=== PATIENT | female | born 1950 | race Caucasian/White ===

== ENCOUNTER 2019-12-10 19:14 | Inpatient (IN) | payer MEDICARE, BC ==
[~2019-12-10] VITALS: Ht 175.3 cm; Wt 52.6 kg
--- NOTE | 2019-12-10 19:24 | NUR ---
at bedside for MSE
[2019-12-10] MEDS ORDERED: QUET200T PO (19:42)
[2019-12-10] MEDS ORDERED: LEVO75TA7 PO (19:42)
[2019-12-10] MEDS ORDERED: PROP20TA7 PO (19:42)
[2019-12-10] MEDS ORDERED: METF-440 PO (19:42)
[2019-12-10] MEDS ORDERED: SERT50TA PO (19:42)
--- NOTE | 2019-12-10 19:53 | NUR ---
EKG done at this time
--- NOTE | 2019-12-10 19:55 | NUR ---
X-ray tech in room at this time
--- NOTE | 2019-12-10 20:19 | NUR ---
Nikki from crisis team called, awaitng return call at this time
--- NOTE | 2019-12-10 20:34 | NUR ---
Assisted to restroom at this time, patient noted talking to self while alone in room
--- NOTE | 2019-12-10 22:07 | NUR ---
Report given at this time to MHU nurse, patient placed on Gravely Disabled hold
[2019-12-10] MEDS ORDERED: MAGNESIUM HYDROXIDE 30 ML LIQUID UDC PO PRN (22:45)
[2019-12-10] MEDS ORDERED: TEMAZEPAM 7.5 MG CAPSULE PO PRN (22:45)
[2019-12-10] MEDS ORDERED: MAG HYDROX/AL HYDROX/SIMETH 30 ML LIQUID UDC PO PRN (22:45)
[2019-12-10] MEDS ORDERED: LORAZEPAM 2 MG/1 ML VIAL IM ONE (22:45)
[2019-12-10] MEDS ORDERED: BLOOD SUGAR DIAGNOSTIC 1 EACH STRIP VI ONE (22:45)
[2019-12-10] MEDS ORDERED: LORAZEPAM 2 MG/1 ML VIAL ONE (22:46)
--- NOTE | 2019-12-10 22:54 | NUR ---
While patient was about to transfer to MHU, patient begun yelling that she wouldnt not go, and then begun hitting and kicking staff and throwing a nearby chair at security, Patient placed in 4 point restraints and given Ativan 2 mg IM per MD orders
[2019-12-10] MEDS ORDERED: ZIPRASIDONE MESYLATE 20 MG VIAL IM ONE ×2 (23:12→23:15)
--- NOTE | 2019-12-10 23:14 | NUR ---
Patient check for circulatory areas, patient continues to yell at this time, 4 point restraints remain intact at this time
--- NOTE | 2019-12-10 23:25 | NUR ---
Patient checked for bathroom needs, cap refill less than 3 seconds, all pulses present, skin to all extremities are WNL
--- NOTE | 2019-12-10 23:45 | NUR ---
Patient checked for bathroom needs, cap refill less than 3 seconds, all pulses present, skin to all extremities are WNL, patient continues to refuse to go to MHU
--- NOTE | 2019-12-11 | NUR ---
Restraints removed at this time, Pt. admitted to MHU , under care of Dr. Chappell Belongs List completed and all belongings sent with patient
[2019-12-11 00:15] VITALS: BP 101/61
--- NOTE | 2019-12-11 00:34 | NUR ---
At approx 0010, admitted 69 years old female to [facility] MHU on a 5150 hold for GD. Per hold, patient lives at home with her . She was taken by her to [facility] d/t increased depression, refusing to eat and unable to care for self. pt has long history of mental health issues. upon interview, she was noted rambling, pacing back and forth, unable to give any meaningful information. She stated, "I has having a conflicted power struggle with my ". She was mumbling to herself and constantly restless and moving her arms. per Kelvin, pt is not eating or drinking for over 24hrs. and not caring for herself. Just before the patient was transferred form ER to MHU, she became aggressive, yelling, screaming, throwing chairs at staff. she was placed on a 4 point restrains and given Geodone 5mg and then Ativan 2mg. Upon admission to MHU, face to face assessment was done and her advisement was given. patient noted A/O x 1. When asked what she was here for, she stated, "I am having a surgery". she is noted drowsy and unable to sign her admission papers. Patient was advised of her hold and given the "Patient rights for mental health" booklet. she was given PO fluids and was taken to the restroom. Skin assessment done, redness noted in forehead (possible psoriasis) and ecchymosis on both forearms. pictures were taken and placed in chart. Her hold will be up on at 2120. Pt is under the care of dr. Chappell. we will continue to monitor Q15 min checks.
[2019-12-11 07:30] VITALS: BP 106/58
[2019-12-11] MEDS ORDERED: INSULIN REGULAR, HUMAN 300 UNIT/3 ML VIAL SQ PRN ×2 (07:45→14:15)
[2019-12-11] MEDS ORDERED: DEXTROSE 50% 50 ML DISP.SYRIN IV PRN ×2 (07:45→14:15)
[2019-12-11] MEDS: PROPRANOLOL HCL 20 MG TABLET PO SCH ×2 (09:00→16:29)
[2019-12-11] MEDS: LEVOTHYROXINE SODIUM 75 MCG TABLET PO SCH (09:33)
[2019-12-11 10:35] LABS: POTASSIUM 4.1 mmol/L (3.5-5.1)
--- NOTE | 2019-12-11 11:12 | NUR ---
Patient is resting quietly and comfortably in her assigned room. Patient is cooperative, redirectable, and has appropriate interaction with staff. Patient is medication adherent, no adverse medication reaction noted. Patient dressed appropriately. She is guarded, withdrawn, and isolative to her assigned room. Patient Denies Suicidal and homicidal ideation, denies Auditory/visual hallucinations. Patient instructed to communicate needs to staff. Bed is in low and locked position. Able to tolerate food and fluids, and to ambulate independently.
[2019-12-11] MEDS: METFORMIN HCL 500 MG TABLET PO SCH (12:00)
[2019-12-11] MEDS: BLOOD SUGAR DIAGNOSTIC 1 EACH STRIP VI SCH ×3 (12:10→20:15)
--- NOTE | 2019-12-11 12:15 | NUR ---
BS 85. Patient is showing no signs of symptoms of hypoglycemia. she is able to tolerate food or fluids. patient provided with education regarding signs and symptoms of hypoglycemia and to inform nurse if these occur, able to verbalize understanding.
[2019-12-11 16:00] VITALS: BP 93/61
[2019-12-11] MEDS ORDERED: BLOOD SUGAR DIAGNOSTIC 1 EACH STRIP VI SCH (16:30)
--- NOTE | 2019-12-11 17:00 | NUR ---
BS 89. Patient has no signs or symptoms of hypoglycemia. She is able to tolerate food and fluids. Patient provided with education about signs and symptoms of hypoglycemia and to inform nurse if these occur, able to verbalize understanding.
[2019-12-11] MEDS: CEphaleXIN 500 MG CAPSULE PO SCH (17:34)
[2019-12-11 20:00] VITALS: BP 101/56
[2019-12-12] MEDS: ACETAMINOPHEN 325 MG TABLET PO PRN (04:49)
[2019-12-12] MEDS: LORAZEPAM 1 MG TABLET PO PRN (04:49)
--- NOTE | 2019-12-12 05:36 | NUR ---
Received patient at the beginning of the shift in bed with covers over her head. Patient stated that " There are bugs biting me all over my body". Also patient was responding to internal stimuli. This patient was able to tell loan underwriter where she was. During the night, patient walked out of room totally wet from urinating self and the bed. Shower was given but bizarre behavior was noted with some aggressive actions towards the SENIOR RISK ANALYST. Android Developer assisted patient back to bed and medicated patient for anxiety d/t patient seeming nervous and squirming around. Patient was compliant. Continuing to monitor for safety, aggressive behavior and medication compliance. No distress at this time.
[2019-12-12] MEDS: BLOOD SUGAR DIAGNOSTIC 1 EACH STRIP VI SCH ×2 (06:15→11:30)
[2019-12-12 07:30] VITALS: BP 101/66
[2019-12-12] MEDS: SERTRALINE HCL 50 MG TABLET PO SCH ×2 (08:20→09:00)
[2019-12-12] MEDS: METFORMIN HCL 500 MG TABLET PO SCH ×2 (08:20→09:00)
[2019-12-12] MEDS: CEphaleXIN 500 MG CAPSULE PO SCH ×3 (08:20→16:38)
[2019-12-12] MEDS: LITHIUM CARBONATE 300 MG CAPSULE PO SCH ×4 (08:20→16:37)
[2019-12-12] MEDS: LEVOTHYROXINE SODIUM 75 MCG TABLET PO SCH ×2 (08:20→09:00)
[2019-12-12] MEDS: PROPRANOLOL HCL 20 MG TABLET PO SCH ×2 (09:00→16:37)
--- NOTE | 2019-12-12 12:27 | NUR ---
SW Initial Discharge Plan: Patient currently resides at [address], [place] [address]; ([phone]). Patient's Kelvin ([phone]) stated he is the DPOA and will send this writer producer documents. Kelvin shared he would want pt back home upon discharge. This writer producer will work with the MD and treatment team to help coordinate proper discharge.
--- NOTE | 2019-12-12 12:27 | NUR ---
SW Family: Patient's Kelvin ([phone]) stated he is the DPOA and will send this sports book writer documents. Kelvin shared he would want pt back home upon discharge. This sports book writer discussed treatment plan and discharge plan.
--- NOTE | 2019-12-12 12:27 | NUR ---
Firearms Report: Compactor Driver completed and submitted a [employer] firearms report for 5150 grave disability certification. A copy of report has been placed in patient chart.
--- NOTE | 2019-12-12 13:21 | NUR ---
SW Note: Patient's Kelvin ([phone]) faxed this comic writer DPOA documents. This comic writer placed in the chart. Kelvin is DPOA.
[2019-12-12 13:29] LABS: THYROID STIMULATING HORMONE 0.607 mIU/mL (0.358-3.740)
[2019-12-12 13:30] LABS: CREATININE 0.9 mg/dL (0.6-1.3); MAGNESIUM 2.2 mg/dL (1.8-2.4); PHOSPHOROUS 4.1 mg/dL (2.5-4.9); POTASSIUM 3.6 mmol/L (3.5-5.1)
--- NOTE | 2019-12-12 13:30 | NUR ---
Patient will be discharged to facility [facility] via Ambulance transportation at 3:00pm today. all personal belonging returned to patient ,vital sign stable. Addendum: 12/12/19 at 1507 by LUIS MCKEON RN ERROR,WRONG PATIENT.
--- NOTE | 2019-12-12 15:08 | NUR ---
Received patient is confused and labile ,refused all am medication.very psychotic taking to herself and become aggressive when approached .stay in her bed covered with blanket over her head,no interaction with other peers,will continue close monitoring.
[2019-12-12 16:00] VITALS: BP 100/70
[2019-12-12 20:33] VITALS: BP 141/84
[2019-12-12] MEDS ORDERED: QUETIAPINE FUMARATE 200 MG TABLET PO SCH (21:00)
--- NOTE | 2019-12-13 06:09 | NUR ---
GPS/ pt was noted sitting in the toilet for a bit longer, checked on her and she was awake and responding appropriately. Visited by MD with new orders, continue to collect urine unable to due to patient none compliant with direction. Due medication given. Pt was noted with few episode of on and off mood swing and noted with pretend aphasic, acting as though she can not speak again using hand gesture. Later noted pt speaking to roommate. Continue monitor during shift.
[2019-12-13 07:30] VITALS: BP 108/60
--- NOTE | 2019-12-13 08:00 | NUR ---
Received patient in the day room sitting in a Nasim chair. She is noted selectively mute, unable to make eye contact with this assembly instructions writer, unable to have a conversation with this assembly instructions writer. patient is reassured and redirected and reality oriented. She refused PO fluids and snacks. V/S stable. safety and fall precaution in place. will continue to monitor. Addendum: 12/14/19 at 0009 by GEOVANY THRASHER RN Wrong time. disregard note, wrong time.
[2019-12-13] MEDS: PROPRANOLOL HCL 20 MG TABLET PO SCH ×2 (09:00→16:36)
[2019-12-13] MEDS: SERTRALINE HCL 50 MG TABLET PO SCH (09:31)
[2019-12-13] MEDS: LEVOTHYROXINE SODIUM 75 MCG TABLET PO SCH (09:31)
[2019-12-13] MEDS: METFORMIN HCL 500 MG TABLET PO SCH (09:31)
[2019-12-13] MEDS: CEphaleXIN 500 MG CAPSULE PO SCH ×2 (09:31→16:35)
[2019-12-13] MEDS: LITHIUM CARBONATE 300 MG CAPSULE PO SCH ×3 (09:31→16:35)
--- NOTE | 2019-12-13 14:48 | NUR ---
ANN Individual Therapy: This typewriter ribbon winder met with pt to conduct brief counseling. Pt appeared to be withdrawn. Pt is psychotic, regressed and was covering herself with a blank and unable to have a conversation with this typewriter ribbon winder. Pt was quiet and did not respond to this typewriter ribbon winder.
[2019-12-13 16:00] VITALS: BP 106/61
--- NOTE | 2019-12-13 19:45 | NUR ---
Received patient in the day room sitting in a Nasim chair. She is noted selectively mute, unable to make eye contact with this caption writer, unable to have a conversation with this caption writer. patient is reassured and redirected and reality oriented. She refused PO fluids and snacks. V/S stable. safety and fall precaution in place. will continue to monitor.
[2019-12-13 20:10] VITALS: BP 115/66
--- NOTE | 2019-12-13 22:15 | NUR ---
Patient was helped to the bathroom, then she was helped into bed. Snacks and PO fluids were offered, pt was able to verbalized her needs and she asked for Glucerna chocolate flavor which was provided. She is reassured for her safety. will continue to monitor.
[2019-12-14 07:30] VITALS: BP 123/67
[2019-12-14] MEDS: LITHIUM CARBONATE 300 MG CAPSULE PO SCH ×3 (09:00→17:00)
[2019-12-14] MEDS: HALOPERIDOL 2 MG TABLET PO SCH ×3 (09:00→17:00)
[2019-12-14] MEDS ORDERED: HALOPERIDOL 1 MG TABLET PO SCH (09:00)
[2019-12-14] MEDS: LEVOTHYROXINE SODIUM 75 MCG TABLET PO SCH (09:00)
[2019-12-14] MEDS: SERTRALINE HCL 50 MG TABLET PO SCH (09:00)
[2019-12-14] MEDS: METFORMIN HCL 500 MG TABLET PO SCH (09:00)
[2019-12-14] MEDS: CEphaleXIN 500 MG CAPSULE PO SCH ×2 (09:00→17:00)
[2019-12-14] MEDS: PROPRANOLOL HCL 20 MG TABLET PO SCH ×2 (09:00→17:00)
--- NOTE | 2019-12-14 09:08 | NUR ---
Gps/Motor Hotel Manager-Resistive to am care, aggressive towards staff during her transfer, scratched RESIDENTIAL SUBCONTRACTOR, kicking , . Needed 2 staff to tranfer her to her haley-chair, refusing to eat, tried to feed, reoffered food couple of times refused. Kept up on her haley-chair, by the Nurses station for safety.
--- NOTE | 2019-12-14 10:47 | NUR ---
SW Family Contact: This parts data writer discussed patient's discharge plan with Kelvin SUSAN ([phone]). Per Kelvin, he is agreeable with a SNF, however, he wants Dr. Chappell to follow pt.
--- NOTE | 2019-12-14 10:48 | NUR ---
SW Discharge Plan: This telegraphic typewriter mechanic faxed patient's history and physical, medication list, and progress notes to Admin Isela from [facility] ([phone]) and will review pt's clinicals.
--- NOTE | 2019-12-14 13:19 | NUR ---
Gps/Primer Inserting Machine Adjuster- Refusing routine pm meds, reoffered couple of times , gets aggressive when being encouraged and tried to assist with meals . Tried to swing at the staff .Refusing to eat, offered her glucerna, still refused.
--- NOTE | 2019-12-14 14:09 | NUR ---
ANN Discharge Plan: Bear Weiss Admin from [facility] ([phone]) stated that patient is accepted.
--- NOTE | 2019-12-14 14:52 | NUR ---
SW Substance Abuse Intervention: Patient was provided with a brief substance abuse intervention and referred to the following substance abuse programs: [facility] Substance Abuse Self-helpline ([phone]); [facility] [address] [place] [address] ([phone]); [facility] [address] [facility] [address] ([phone]); [facility] ([phone]); [facility] ([phone]); [facility] ([phone]); [facility] ([phone]).
[2019-12-14 16:00] VITALS: BP 123/74
--- NOTE | 2019-12-14 17:34 | NUR ---
Gps/Florist- Staff constantly reoffering her routine pm meds, refused, pushing staff away. Noted pt. drinks her glucerna , as staff not looking
--- NOTE | 2019-12-14 18:58 | NUR ---
Gps/Division Chief- Tried to assist patient back to bed this pm, but she gets aggressive, trying to hit staff, kiccking, yelling, refused to go back to bed.
--- NOTE | 2019-12-14 20:00 | NUR ---
Received patient in the hallway, sitting in a Norma chair. She is noted selectively mute. Pt becomes Irritable, aggressive and combative when attempting to reposition her in her chair. Pt is unable to make eye contact, unable to have meaningful conversation with this inspector automatic typewriter. mood is irritable, labile, affect is flat. pt refused snacks and PO fluids. refused V/S. safety and fall precaution in place. will continue to monitor.
--- NOTE | 2019-12-14 21:00 | NUR ---
Pt continue with mood swings. She can become irritable, aggressive and combative, then catatonic, unable to make eye contact and selectively mute. Patient required multiple redirections. PO fluids and snacks were offered but pt refused. Will continue to monitor.
[2019-12-15 07:30] VITALS: BP 119/60
[2019-12-15] MEDS: CEphaleXIN 500 MG CAPSULE PO SCH ×2 (09:00→17:00)
[2019-12-15] MEDS: LITHIUM CARBONATE 300 MG CAPSULE PO SCH ×3 (09:00→17:00)
[2019-12-15] MEDS: LEVOTHYROXINE SODIUM 75 MCG TABLET PO SCH (09:00)
[2019-12-15] MEDS: METFORMIN HCL 500 MG TABLET PO SCH (09:00)
[2019-12-15] MEDS: HALOPERIDOL 2 MG TABLET PO SCH ×3 (09:00→17:00)
[2019-12-15] MEDS: SERTRALINE HCL 50 MG TABLET PO SCH (09:00)
[2019-12-15] MEDS: PROPRANOLOL HCL 20 MG TABLET PO SCH ×2 (09:00→17:00)
--- NOTE | 2019-12-15 13:15 | NUR ---
Gps/Service Delivery Consultant- Reoffered routine po. meds, refused, not responding, but staff noted patient eye are flickering /eyelips moving, does not want to open her eye , no interactions noted. Remains in bed ., safety emphasized.
[2019-12-15 15:46] VITALS: BP 122/73
--- NOTE | 2019-12-15 16:10 | NUR ---
Gps/Senior Talent Acquisition Specialist- Patient pushed bedside table towards her roommate,
--- NOTE | 2019-12-16 03:34 | NUR ---
GPS/ pt was received in TV room up watching tv without socializing with peers, quite and not interacting. Pt responded to nursing staffs with one to two wards only. Monitoring per behavior with roommate. Pt was assisted to bed but she refuse and was transfer back to [facility]. No verbalizing of SI, HI or intent to harm self or others. Pt up by nursing station at this time. Noted with an episode of yelling in nonviolent manner and when asked pt said she had a bad dream. Encouraged to vent out feelings and offer care. Will continue monitor with anticipated safety and behavior changes.
[2019-12-16 07:30] VITALS: BP 121/73
[2019-12-16] MEDS: LITHIUM CARBONATE 300 MG CAPSULE PO SCH ×3 (10:08→16:22)
[2019-12-16] MEDS: LEVOTHYROXINE SODIUM 75 MCG TABLET PO SCH (10:09)
[2019-12-16] MEDS: CEphaleXIN 500 MG CAPSULE PO SCH (10:09)
[2019-12-16] MEDS: SERTRALINE HCL 50 MG TABLET PO SCH (10:09)
[2019-12-16] MEDS: METFORMIN HCL 500 MG TABLET PO SCH (10:10)
[2019-12-16] MEDS: HALOPERIDOL 2 MG TABLET PO SCH ×3 (10:10→16:22)
[2019-12-16] MEDS: PROPRANOLOL HCL 20 MG TABLET PO SCH ×2 (10:29→16:41)
--- NOTE | 2019-12-16 12:50 | NUR ---
Gps/Attendant [facility]- Stayed up in her group today, watching TV. Ptient was able to take routine mediciations after prompting to take, adequate fluid intake. Noted some crying spells , reassured ..Making her simple needs known to staff this pm with limited words .Encouraged to continue to verbalized needs/feelings. Per patient does not like loud voices, it does irritate her .
[2019-12-16 16:00] VITALS: BP 112/60
--- NOTE | 2019-12-16 17:14 | NUR ---
Gps/Copywriter- Had been interacting with the staff, answering simple questions, making her needs known, was able to talked to her . Patient allowed to walk around, closely monitored safety, had, compliant with her routine meds. took meds. this pm free will after reviewed with patient.Ambulates around with no adaptive devices.
--- NOTE | 2019-12-16 17:15 | NUR ---
Gps/Outside Plant Engineer- Poor nutritional intake, poor appetite, was able to drink her glucerna , as well as juices(apple juice, orange juice) . Patient requesting if she can go inside he peers' room, she just need to talk to him, discouraged from doing so, can talk to her peers when they are outside their room or in the dinning room.
--- NOTE | 2019-12-16 18:07 | NUR ---
Gps/Auto Service Instructor- Paing back and forth the hallway, anxious, claimed she does not feel well, she thinks is is being poisoned, refusing to eat but takes glucerna. Mylanta 30 ml was given po, and ativan 1 mg 1 tab po. given for anxiety. Patient also verbalized she is scared to go back to her room she is afraid of her roommate, when asked what she's afraid of, she wont say.,patient reassured.
[2019-12-16] MEDS: LORAZEPAM 1 MG TABLET PO PRN (18:12)
[2019-12-16] MEDS: MIRTAZAPINE 15 MG TABLET PO SCH (20:28)
[2019-12-16 20:30] VITALS: BP 118/66
--- NOTE | 2019-12-17 04:26 | NUR ---
GPS/rn: Received pt in bed a/ox2. Pt more responsive to staffs and cooperative with meds today. Pt unable to verbalize sense of SI or intent but said I am OK when asked. Still noted very isolative and not interacting much, calm and no PRN was given during shift. Head check done and noted pt asleep with rise and fall of chest, respiratory even and no SOB. Will anticipate all needs and behavior changes and continue monitor.
[2019-12-17 07:30] VITALS: BP 108/64
[2019-12-17] MEDS: SERTRALINE HCL 50 MG TABLET PO SCH (08:38)
[2019-12-17] MEDS: LITHIUM CARBONATE 300 MG CAPSULE PO SCH ×3 (08:39→16:58)
[2019-12-17] MEDS: METFORMIN HCL 500 MG TABLET PO SCH (08:39)
[2019-12-17] MEDS: PROPRANOLOL HCL 20 MG TABLET PO SCH ×2 (08:39→16:56)
[2019-12-17] MEDS: HALOPERIDOL 2 MG TABLET PO SCH ×3 (08:40→16:55)
[2019-12-17] MEDS: LEVOTHYROXINE SODIUM 75 MCG TABLET PO SCH (08:40)
[2019-12-17 15:34] VITALS: BP 91/63
--- NOTE | 2019-12-17 17:00 | NUR ---
Gps/Transportation Planning Engineer- Noted patient continue to interacts when approached.Making her needs known to the staff. Groomed self ind. after set up. Eating solid foods better, fluid intake adequate likes to drink her glucerna supp. Continued compliance with her medications noted. Reminded patient the need to collect urine specimen, requested container to be left at her bedside, will f/u.
[2019-12-17 20:25] VITALS: BP 101/62
[2019-12-17] MEDS: ATORVASTATIN 40 MG TABLET PO SCH (21:47)
[2019-12-17] MEDS: MIRTAZAPINE 15 MG TABLET PO SCH (21:47)
--- NOTE | 2019-12-17 22:00 | NUR ---
Patient refused Lipitor but she was able to take remeron. will continue to monitor.
[2019-12-18 07:30] VITALS: BP 91/52
[2019-12-18 07:46] LABS: BASOPHILS % (AUTO) 0.4 % (0.0-2.0); EOSINOPHILS # (AUTO) 0.1 K/uL (0.0-0.7); EOSINOPHILS % (AUTO) 1.7 % (0.0-7.0); HEMATOCRIT 34.3 % (31.2-41.9); HEMOGLOBIN 11.9 g/dL (10.9-14.3); LYMPHOCYTES # (AUTO) 1.4 K/uL (20.0-40.0); LYMPHOCYTES % (AUTO) 21.1 % (20.5-51.5); MEAN CORPUSCULAR HEMOGLOBIN 32.5 uug (24.7-32.8); MEAN CORPUSCULAR HGB CONC 35 g/dL (32.3-35.6); MONOCYTES # (AUTO) 0.7 K/uL (2.0-10.0); MONOCYTES % (AUTO) 10.3 % (0.0-11.0); NEUTROPHILS # (AUTO) 4.5 K/uL (1.8-8.9); NEUTROPHILS % (AUTO) 66.5 % (38.5-71.5); PLATELET COUNT (AUTO) 160 K/uL (179-408); RED BLOOD CELL COUNT(AUTO) 3.65 MIL/uL (3.63-4.92); WHITE BLOOD COUNT (AUTO) 6.7 K/uL (3.8-11.8)
[2019-12-18 08:16] LABS: BILIRUBIN,TOTAL 0.5 mg/dL (0.2-1.0); MAGNESIUM 2.3 mg/dL (1.8-2.4); PHOSPHOROUS 3.9 mg/dL (2.5-4.9); POTASSIUM 3.9 mmol/L (3.5-5.1); TOTAL PROTEIN, SERUM 6.9 g/dL (6.4-8.2)
[2019-12-18] MEDS: HALOPERIDOL 2 MG TABLET PO SCH ×3 (08:23→16:27)
[2019-12-18] MEDS: LEVOTHYROXINE SODIUM 75 MCG TABLET PO SCH (08:23)
[2019-12-18] MEDS: LITHIUM CARBONATE 300 MG CAPSULE PO SCH ×3 (08:23→16:27)
[2019-12-18] MEDS: PROPRANOLOL HCL 20 MG TABLET PO SCH ×2 (08:24→16:28)
[2019-12-18] MEDS: METFORMIN HCL 500 MG TABLET PO SCH (08:25)
[2019-12-18] MEDS: SERTRALINE HCL 50 MG TABLET PO SCH (08:30)
--- NOTE | 2019-12-18 14:30 | NUR ---
Gps/rn: Received patient awake in bed in stable condition. Compliant with medication. Patient able to make needs know. Patient communicate not all the time. Not answering at times during conversation. not in distress. Denies SI and homicidal ideation. Patient good appearance and good grooming noted. will continue monitor
[2019-12-18] MEDS ORDERED: METF-494 PO (14:56)
[2019-12-18 15:28] VITALS: BP 100/58
[2019-12-18] MEDS: GLUCERNA SHAKE VANILLA 237 ML CAN PO SCH (16:28)
[2019-12-18 20:00] VITALS: BP 103/53
[2019-12-18] MEDS: ATORVASTATIN 40 MG TABLET PO SCH (20:38)
[2019-12-18] MEDS: MIRTAZAPINE 15 MG TABLET PO SCH (20:38)
[2019-12-19] MEDS: LEVOTHYROXINE SODIUM 75 MCG TABLET PO SCH (06:09)
[2019-12-19 07:30] VITALS: BP 112/64
[2019-12-19] MEDS: HALOPERIDOL 2 MG TABLET PO SCH ×3 (08:36→17:13)
[2019-12-19] MEDS: LITHIUM CARBONATE 300 MG CAPSULE PO SCH ×3 (08:36→17:13)
[2019-12-19] MEDS: SERTRALINE HCL 50 MG TABLET PO SCH (08:37)
[2019-12-19] MEDS: METFORMIN XR 500 MG TAB.SR.24H PO SCH (08:37)
[2019-12-19] MEDS: PROPRANOLOL HCL 20 MG TABLET PO SCH (08:37)
[2019-12-19] MEDS: GLUCERNA SHAKE VANILLA 237 ML CAN PO SCH ×3 (08:38→17:14)
--- NOTE | 2019-12-19 11:26 | NUR ---
Family Contact: SW called the pts and DPKelvin ASHLEY ([phone]), and he stated that he spoke to the pt and based off of his evaluation on the conversation he states that the pt is showing improvement. SW asked to confirm the pts discharge plan to [facility] and he stated that he drove by the facility and he does not approve of this placement. He stated that he wants the pt to be discharged to either [facility] in [place] or he will want the pt home if she continues to improve.
--- NOTE | 2019-12-19 11:52 | NUR ---
Family Contact: SW called the pts and DPOA Kelvin ([phone]), and stated that [facility] is not a name for a longterm in the [facility] and he stated that he made a mistake and that the facility is called [facility]. ANN stated that she will send a referral for the pt.
--- NOTE | 2019-12-19 12:06 | NUR ---
[facility] Referral: ANN haney a referral to [facility] with attention to Admissions to the fax number: [phone]. Addendum: 12/19/19 at 1207 by CARMEN JUAREZ SNF Referral*
[2019-12-19 12:38] LABS: *BILIRUBIN,URIN NEGATIVE (NEGATIVE); *BLOOD, URINE NEGATIVE (NEGATIVE); *CLARITY,URINE SLIGHTLY CLOUDY (CLEAR); *COLOR,URINE YELLOW (YELLOW); *KETONES,URINE NEGATIVE (NEGATIVE); *UROBILINOGEN,URINE 0.2 E.U./dl (NORMAL); LEUKOCYTE ESTERASE ,URINE TRACE (NEGATIVE); NITRITE, URINE NEGATIVE (NEGATIVE); PH,URINE >=9.0 (5.0-8.0); UGLUCOSE NEGATIVE (NEGATIVE)
[2019-12-19 15:57] LABS: BACTERIA,URINE MANY /HPF (NONE SEEN); RBC,URINE 0-3 /HPF (0-3); SQUAMOUS EPITHELIAL CELL,UR FEW /HPF (NONE SEEN)
[2019-12-19 15:58] LABS: TRIPLE PHOSPHATE CRYSTAL,UR MANY /HPF (NONE SEEN); URINE AMORPHOUS PHOSPHATES FEW /HPF
[2019-12-19 16:40] VITALS: BP 111/57
[2019-12-19] MEDS: PROPRANOLOL HCL 40 MG TABLET PO SCH (17:00)
[2019-12-19 19:53] VITALS: BP 93/57
[2019-12-19] MEDS: ATORVASTATIN 40 MG TABLET PO SCH (21:06)
[2019-12-19] MEDS: MIRTAZAPINE 15 MG TABLET PO SCH (21:06)
[2019-12-20] MEDS: LEVOTHYROXINE SODIUM 75 MCG TABLET PO SCH (06:32)
[2019-12-20 07:30] VITALS: BP 99/59
--- NOTE | 2019-12-20 07:30 | NUR ---
RECEIVED PATIENT AOX1, QUIET, RTIS, PATIENT COMPLIANT WITH MEDICATION NO DISTRESS
[2019-12-20] MEDS: HALOPERIDOL 2 MG TABLET PO SCH ×2 (08:14→12:29)
[2019-12-20] MEDS: SERTRALINE HCL 50 MG TABLET PO SCH (08:14)
[2019-12-20] MEDS: LITHIUM CARBONATE 300 MG CAPSULE PO SCH ×3 (08:14→16:07)
[2019-12-20] MEDS: METFORMIN XR 500 MG TAB.SR.24H PO SCH (08:16)
[2019-12-20] MEDS: GLUCERNA SHAKE VANILLA 237 ML CAN PO SCH ×3 (08:16→16:07)
[2019-12-20] MEDS: PROPRANOLOL HCL 40 MG TABLET PO SCH ×2 (08:17→17:00)
[2019-12-20 16:02] VITALS: BP 8/57
[2019-12-20] MEDS: BENZTROPINE MESYLATE 1 MG TABLET PO SCH (16:07)
[2019-12-20] MEDS: HALOPERIDOL 5 MG TABLET PO SCH (16:07)
--- NOTE | 2019-12-20 18:04 | NUR ---
PATIENT BEEN COMPLIANT , ATE 50% OF HER MEAL, PATIENT DENIES SI AND HI, COMPLIANT WITH MEDICATION, NO DISTRESS
[2019-12-20 19:57] VITALS: BP 104/58
[2019-12-20] MEDS: MIRTAZAPINE 15 MG TABLET PO SCH (20:27)
[2019-12-20] MEDS: ATORVASTATIN 40 MG TABLET PO SCH (20:27)
[2019-12-21] MEDS: LEVOTHYROXINE SODIUM 75 MCG TABLET PO SCH (06:20)
[2019-12-21 07:30] VITALS: BP 106/58
[2019-12-21] MEDS: PROPRANOLOL HCL 40 MG TABLET PO SCH ×2 (09:00→17:00)
[2019-12-21] MEDS: GLUCERNA SHAKE VANILLA 237 ML CAN PO SCH ×3 (09:00→17:00)
[2019-12-21] MEDS: METFORMIN XR 500 MG TAB.SR.24H PO SCH (09:11)
[2019-12-21] MEDS: HALOPERIDOL 5 MG TABLET PO SCH ×2 (09:14→17:50)
[2019-12-21] MEDS: BENZTROPINE MESYLATE 1 MG TABLET PO SCH ×2 (09:14→17:57)
[2019-12-21] MEDS: SERTRALINE HCL 50 MG TABLET PO SCH (09:14)
[2019-12-21] MEDS: LITHIUM CARBONATE 300 MG CAPSULE PO SCH ×3 (09:30→17:50)
--- NOTE | 2019-12-21 14:43 | NUR ---
SNF Contact: SW called [facility] and spoke to the admissions director who stated that the pt was denied due to the 7830.
--- NOTE | 2019-12-21 14:44 | NUR ---
Family Contact: ANN called the pts and DPOA, Kelvin ([phone]), and informed him that [facility] would not accept the pt to their facility and he stated that if the pt is discharged on Wednesday or Wednesday she can come back home.
[2019-12-21 16:00] VITALS: BP 119/64
--- NOTE | 2019-12-21 18:14 | NUR ---
Gps/Home Office Representative- Patient had been quiet, making her simple needs known, likes glucerna supplements, adequate fluid intake, meds. compliant,. Noted patient tried to covers her ears with palm of her hands, when asked if she is hearing voices, pt. denied.
[2019-12-21 20:00] VITALS: BP 108/57
[2019-12-21] MEDS: MIRTAZAPINE 15 MG TABLET PO SCH (21:29)
[2019-12-21] MEDS: ATORVASTATIN 40 MG TABLET PO SCH (21:29)
[2019-12-22] MEDS: LEVOTHYROXINE SODIUM 75 MCG TABLET PO SCH (07:06)
[2019-12-22 07:30] VITALS: BP 99/60
[2019-12-22] MEDS: LITHIUM CARBONATE 300 MG CAPSULE PO SCH ×3 (08:32→16:58)
[2019-12-22] MEDS: HALOPERIDOL 5 MG TABLET PO SCH ×2 (08:32→16:58)
[2019-12-22] MEDS: METFORMIN XR 500 MG TAB.SR.24H PO SCH (08:32)
[2019-12-22] MEDS: BENZTROPINE MESYLATE 1 MG TABLET PO SCH ×2 (08:32→16:57)
[2019-12-22] MEDS: SERTRALINE HCL 50 MG TABLET PO SCH (08:32)
[2019-12-22] MEDS: PROPRANOLOL HCL 40 MG TABLET PO SCH ×2 (08:34→16:57)
[2019-12-22] MEDS: GLUCERNA SHAKE VANILLA 237 ML CAN PO SCH ×3 (09:00→18:09)
[2019-12-22 16:00] VITALS: BP 109/69
[2019-12-22 19:54] VITALS: BP 110/64
[2019-12-22] MEDS: MIRTAZAPINE 15 MG TABLET PO SCH (20:33)
[2019-12-22] MEDS: ATORVASTATIN 40 MG TABLET PO SCH (20:34)
[2019-12-22] MEDS: LORAZEPAM 1 MG TABLET PO PRN (22:34)
--- NOTE | 2019-12-23 04:26 | NUR ---
GPS: Pt was received in bed lying down and verbally responded to interaction. Pt cooperative with care and medications. Pt with poor insight and vague thinking still noted. Encouraged to walk outside her room and to watch TV with peers. Patient even asked for something to sleep and PRN Ativan was given with noted effectiveness. Pt at this time asleep and noted breathing even with rise and fall of chest wall. Q/15mins head count ongoing and anticipated safety and behavior.
[2019-12-23] MEDS: LEVOTHYROXINE SODIUM 75 MCG TABLET PO SCH (06:33)
[2019-12-23] MEDS: PROPRANOLOL HCL 40 MG TABLET PO SCH ×2 (09:00→17:11)
[2019-12-23] MEDS: SERTRALINE HCL 50 MG TABLET PO SCH (09:05)
[2019-12-23] MEDS: HALOPERIDOL 5 MG TABLET PO SCH ×2 (09:07→16:34)
[2019-12-23] MEDS: BENZTROPINE MESYLATE 1 MG TABLET PO SCH ×2 (09:07→16:34)
[2019-12-23] MEDS: METFORMIN XR 500 MG TAB.SR.24H PO SCH (09:07)
[2019-12-23] MEDS: GLUCERNA SHAKE VANILLA 237 ML CAN PO SCH ×3 (09:07→16:35)
[2019-12-23] MEDS: LITHIUM CARBONATE 300 MG CAPSULE PO SCH ×3 (09:07→16:34)
[2019-12-23 10:58] VITALS: BP 99/62
[2019-12-23 16:51] VITALS: BP 104/60
[2019-12-23 20:00] VITALS: BP 90/50
[2019-12-23] MEDS: MIRTAZAPINE 15 MG TABLET PO SCH (20:59)
[2019-12-23] MEDS: ATORVASTATIN 40 MG TABLET PO SCH (20:59)
[2019-12-23] MEDS: LORAZEPAM 1 MG TABLET PO PRN (22:15)
--- NOTE | 2019-12-23 22:15 | NUR ---
Patient come out of room 141 and started hitting this sba underwriter with two news papers. This sba underwriter redirected patient then another staff came and patient was redirected back to her room. She was given Ativan 1mg PO PRN. When asked what happened, she kept repiting what this sba underwriter. will continue to monitor.
--- NOTE | 2019-12-24 05:32 | NUR ---
Pt continue hyperverbal, and delusional. Attempted to give Vistaril 25mg PO PRN for anxiety; however, patient refused. will continue to monitor. Addendum: 12/24/19 at 0539 by GEOVANY THRASHER RN Mistaken entry, please Discard wrong patient.
[2019-12-24] MEDS: LEVOTHYROXINE SODIUM 75 MCG TABLET PO SCH (06:32)
[2019-12-24 07:30] VITALS: BP 98/55
[2019-12-24] MEDS: GLUCERNA SHAKE VANILLA 237 ML CAN PO SCH ×3 (08:21→16:50)
[2019-12-24] MEDS: METFORMIN XR 500 MG TAB.SR.24H PO SCH (08:21)
[2019-12-24] MEDS: SERTRALINE HCL 50 MG TABLET PO SCH (08:21)
[2019-12-24] MEDS: BENZTROPINE MESYLATE 1 MG TABLET PO SCH ×2 (08:21→16:50)
[2019-12-24] MEDS: LITHIUM CARBONATE 300 MG CAPSULE PO SCH ×3 (08:21→16:50)
[2019-12-24] MEDS: HALOPERIDOL 5 MG TABLET PO SCH ×2 (08:21→16:50)
[2019-12-24] MEDS: PROPRANOLOL HCL 40 MG TABLET PO SCH ×2 (08:22→16:50)
[2019-12-24 16:45] VITALS: BP 93/52
[2019-12-24 20:02] VITALS: BP 103/55
[2019-12-24] MEDS: MIRTAZAPINE 15 MG TABLET PO SCH (20:04)
[2019-12-24] MEDS: ATORVASTATIN 40 MG TABLET PO SCH (20:05)
[2019-12-25] MEDS: LEVOTHYROXINE SODIUM 75 MCG TABLET PO SCH (06:54)
[2019-12-25 07:30] VITALS: BP 130/61
[2019-12-25] MEDS: HALOPERIDOL 5 MG TABLET PO SCH ×2 (08:05→17:26)
[2019-12-25] MEDS: BENZTROPINE MESYLATE 1 MG TABLET PO SCH ×2 (08:05→17:25)
[2019-12-25] MEDS: LITHIUM CARBONATE 300 MG CAPSULE PO SCH ×3 (08:05→17:26)
[2019-12-25] MEDS: METFORMIN XR 500 MG TAB.SR.24H PO SCH (08:05)
[2019-12-25] MEDS: SERTRALINE HCL 50 MG TABLET PO SCH (08:06)
[2019-12-25] MEDS: PROPRANOLOL HCL 40 MG TABLET PO SCH ×2 (08:06→17:26)
[2019-12-25] MEDS: GLUCERNA SHAKE VANILLA 237 ML CAN PO SCH ×3 (08:07→17:26)
--- NOTE | 2019-12-25 13:00 | NUR ---
ANN Coordination of Care: This process description writer faxed patient's clinicals to [facility] ([phone]) and stated that pt is accepted.
--- NOTE | 2019-12-25 13:01 | NUR ---
SW Family Contact: This expert medical writer spoke with pt's Kelvin ([phone]) and stated that pt is accepted at [facility], however, refused and wants pt back home.
--- NOTE | 2019-12-25 13:14 | NUR ---
Coordination of Care: This senior grant writer contacted patients doctor office and spoke with Deepali who scheduled the appointment. Patient will follow up with Dr. Hall (Gameplay Programmer) located at [address] [facility] [address] [address]; ([phone]) on December 26 at 9:50AM via telehealth. This senior grant writer contacted patient's doctor and spoke with Dr. Davis who scheduled an appointment. Patient will follow up with Dr. Davis (Psychiatrist) located at [address] [place] [address] [address], [place] [address]; ([phone]) on December 27 at 11AM via telehealth.
[2019-12-25 15:15] VITALS: BP 106/50
[2019-12-25 20:00] VITALS: BP 114/52
[2019-12-25] MEDS: ATORVASTATIN 40 MG TABLET PO SCH (20:19)
[2019-12-25] MEDS: MIRTAZAPINE 15 MG TABLET PO SCH (20:19)
--- NOTE | 2019-12-25 20:39 | NUR ---
GPS: Received pt a/o x 2, denied pain or discomfort. Noted some restless, and pacing around trying to assist another pt sitting up by nursing station saying he is her friend. Pt able to verbalize her needs and encouraged to vent out her feelings, also redirected and assist pt to her room for avoiding personal space issue. Pt was also noted c/o her roommate, reenforce reality orientation and made aware pt also here for treatment. Denies SI, HI and no intent to harm others or self. Pt cooperative with routine meds and eat snack, safety precautions in place, Q/15mins head count ongoing.
[2019-12-25] MEDS: LORAZEPAM 1 MG TABLET PO PRN (22:12)
[2019-12-26] MEDS: LEVOTHYROXINE SODIUM 75 MCG TABLET PO SCH (06:28)
--- NOTE | 2019-12-26 06:57 | NUR ---
Pt was confuse and pacing and saying she can not rest. Ativan 1mg given at 2212, some effective. Pt slept 3.30hrs during night. Took shower today. Pt wet her bed with urine she said it was accident.
[2019-12-26 07:36] VITALS: BP 114/61
--- NOTE | 2019-12-26 08:03 | NUR ---
Discharge Note: Patient will be discharged home [address] , [place] [address]: ([phone]). Patients DPOA Kelvin ([phone]) is aware and agreeable with discharge plan. Kelvin ([phone]) will orange picking supervisor patient at 12PM. Upon discharge, patient appears to be calm, cooperative and happy to be going back home. Patient denies suicidal and homicidal ideation. Patient will follow up with Dr. Hall (Database Analyst) located at [address] [facility] [address], [place] [address]; ([phone]) on December 26 at 9:50AM via telehealth. Patient will follow up with Dr. Davis (Psychiatrist) located at [address], [place] [address]; ([phone]) on December 27 at 11AM via telehealth. Patient was provided referrals to the following substance abuse programs: [facility] Substance Abuse Self-helpline ([phone]); [facility] [address] [place] [address] ([phone]); [place] [id number] [facility] [address] ([phone]); [facility] ([phone]); [facility] ([phone]); [facility] ([phone]); [facility] ([phone]). Patient presented with euthymic mood and congruent affect but was guarded upon discharge. Addendum: 12/26/19 at 1049 by ANN GUILLORY Discharge cancelled.
[2019-12-26] MEDS: METFORMIN XR 500 MG TAB.SR.24H PO SCH (08:14)
[2019-12-26] MEDS: BENZTROPINE MESYLATE 1 MG TABLET PO SCH ×2 (08:14→17:39)
[2019-12-26] MEDS: LITHIUM CARBONATE 300 MG CAPSULE PO SCH ×3 (08:14→17:39)
[2019-12-26] MEDS: HALOPERIDOL 5 MG TABLET PO SCH ×2 (08:14→17:39)
[2019-12-26] MEDS: SERTRALINE HCL 50 MG TABLET PO SCH (08:14)
[2019-12-26] MEDS: PROPRANOLOL HCL 40 MG TABLET PO SCH ×2 (08:15→17:00)
[2019-12-26] MEDS: GLUCERNA SHAKE VANILLA 237 ML CAN PO SCH ×3 (08:15→17:40)
--- NOTE | 2019-12-26 10:16 | NUR ---
GPS: Nursing Notes: Cancel Discharge: Dr. Chappell called back and informed him regarding patient behavior during the night, as reported to staff by the night nurse, Dr. Chappell order to cancel the discharge, staff informed charge nurse and bilingual social worker, continue to monitor for safety, continue with treatment plan.
--- NOTE | 2019-12-26 10:54 | NUR ---
SW Family Contact: This content writer contacted pt's milton Warren ([phone]) and stated that dc is canceled.
--- NOTE | 2019-12-26 13:08 | NUR ---
SW Family Contact: This senior medical writer contacted pt's SUSAN Warren ([phone]) and discussed discharge plan. This senior medical writer explained risk factors if pt was to return back home and stated that the treatment team believes the safest dc plan would be to transition to a SNF. However, Kelvin stated that he is unsure and would need to think about it and will touch base with this senior medical writer on 12/26.
[2019-12-26] MEDS: ACETAMINOPHEN 325 MG TABLET PO PRN (14:55)
[2019-12-26 15:04] VITALS: BP 109/51
[2019-12-26 19:59] VITALS: BP 112/60
[2019-12-26] MEDS: ATORVASTATIN 40 MG TABLET PO SCH (20:19)
[2019-12-26] MEDS: MIRTAZAPINE 15 MG TABLET PO SCH (20:19)
--- NOTE | 2019-12-26 21:05 | NUR ---
Received patient lying in bed. Patient did not engage in conversation when approached initially. Patient eventually went to the common area and engaged in conversation. AAOx2. Denies pain or discomfort at this time. Pt compliant with evening medications. Safety precautions in place and Q15 min checks ongoing.
--- NOTE | 2019-12-26 23:24 | NUR ---
Pt started on [address] Chappell. Informed pt and family made aware by .
[2019-12-27] MEDS: LEVOTHYROXINE SODIUM 75 MCG TABLET PO SCH (06:10)
--- NOTE | 2019-12-27 06:16 | NUR ---
Patient slept intermittently, in and out of her room pacing the hallways asking for food. Slept 3.00 hours
[2019-12-27 07:30] VITALS: BP 111/66
[2019-12-27] MEDS: BENZTROPINE MESYLATE 1 MG TABLET PO SCH ×3 (08:08→16:47)
[2019-12-27] MEDS: LITHIUM CARBONATE 300 MG CAPSULE PO SCH ×3 (08:08→16:47)
[2019-12-27] MEDS: METFORMIN XR 500 MG TAB.SR.24H PO SCH (08:08)
[2019-12-27] MEDS: HALOPERIDOL 5 MG TABLET PO SCH ×3 (08:09→16:47)
[2019-12-27] MEDS: PROPRANOLOL HCL 40 MG TABLET PO SCH ×2 (08:09→16:48)
[2019-12-27] MEDS: SERTRALINE HCL 50 MG TABLET PO SCH (08:09)
[2019-12-27] MEDS: GLUCERNA SHAKE VANILLA 237 ML CAN PO SCH ×3 (08:10→16:48)
--- NOTE | 2019-12-27 10:02 | NUR ---
SW Family Contact: This creative services writer spoke to patient's RUDOLPHDION Warren ([phone]) and discussed discharge plan. This creative services writer stated pt is accepted at [facility] ([phone]) and Kelvin stated that he would want pt to transfer to [facility] upon dc.
--- NOTE | 2019-12-27 11:42 | NUR ---
ANN Individual Therapy: This senior grant writer attempted to conduct brief therapy. Pt appeared withdrawn and refused to communicate with this senior grant writer. This senior grant writer will attempt to conduct brief therapy at a different time.
[2019-12-27 16:06] VITALS: BP 98/53
[2019-12-27 19:49] VITALS: BP 104/55
[2019-12-27] MEDS: ATORVASTATIN 40 MG TABLET PO SCH (20:20)
[2019-12-27] MEDS: MIRTAZAPINE 15 MG TABLET PO SCH (20:20)
[2019-12-28] MEDS: LEVOTHYROXINE SODIUM 75 MCG TABLET PO SCH (06:53)
[2019-12-28 07:30] VITALS: BP 123/48
--- NOTE | 2019-12-28 08:00 | NUR ---
Awake, alert, oriented x 2, quiet, passive, compliant with taking medications.
[2019-12-28] MEDS: METFORMIN XR 500 MG TAB.SR.24H PO SCH (08:07)
[2019-12-28] MEDS: PROPRANOLOL HCL 40 MG TABLET PO SCH ×2 (08:07→16:54)
[2019-12-28] MEDS: SERTRALINE HCL 50 MG TABLET PO SCH (08:07)
[2019-12-28] MEDS: LITHIUM CARBONATE 300 MG CAPSULE PO SCH ×3 (08:07→16:54)
[2019-12-28] MEDS: BENZTROPINE MESYLATE 1 MG TABLET PO SCH ×3 (08:07→16:53)
[2019-12-28] MEDS: HALOPERIDOL 5 MG TABLET PO SCH ×3 (08:07→16:54)
[2019-12-28] MEDS: GLUCERNA SHAKE VANILLA 237 ML CAN PO SCH ×3 (08:08→16:55)
--- NOTE | 2019-12-28 15:26 | NUR ---
Covid19 swab done, sent to lab
[2019-12-28 20:00] VITALS: BP 116/77
[2019-12-28] MEDS: ATORVASTATIN 40 MG TABLET PO SCH (20:28)
[2019-12-28] MEDS: MIRTAZAPINE 15 MG TABLET PO SCH (20:28)
[2019-12-29] MEDS: LEVOTHYROXINE SODIUM 75 MCG TABLET PO SCH (06:09)
--- NOTE | 2019-12-29 06:54 | NUR ---
Patient slept for approx. 5.45 hrs through the night. she will be discharged today. will continue to monitor.
[2019-12-29 07:30] VITALS: BP 92/53
--- NOTE | 2019-12-29 07:58 | NUR ---
Discharge Note: Patient will be discharged to longterm facility, [facility] [address] [place] [address] ([phone]) via ambulance transportation at 11am. copy worker spoke with Radha Ralph ([phone]), who stated patient will be accepted at the facility today. Patients SUSAN Warren ([phone]) is aware and agreeable with discharge. Patient is alert and oriented x1-2 and is unable to plan for self-care. Patient denies any suicidal or homicidal ideation. Patient is aware and agreeable with discharge plans. Patient will continue to follow-up with (Psychiatrist) Dr. Chappell and (Training And Development Professional) Dr. Salazar at [facility]. Patient was provided referrals to the following substance abuse programs: [facility] ([phone]); [facility] [address] [place] [address] ([phone]); [address] [address] ([phone]); [facility] ([phone]); [facility] ([phone]); [facility] ([phone]); [facility] [place] ([phone]). Patient presents with euthymic mood and congruent affect but appeared guarded upon discharge.
[2019-12-29 08:10] VITALS: BP 92/53
[2019-12-29] MEDS: GLUCERNA SHAKE VANILLA 237 ML CAN PO SCH ×2 (08:10→12:39)
[2019-12-29] MEDS: PROPRANOLOL HCL 40 MG TABLET PO SCH (08:10)
[2019-12-29] MEDS: BENZTROPINE MESYLATE 1 MG TABLET PO SCH ×2 (08:14→12:48)
[2019-12-29] MEDS: LITHIUM CARBONATE 300 MG CAPSULE PO SCH ×2 (08:14→12:48)
[2019-12-29] MEDS: SERTRALINE HCL 50 MG TABLET PO SCH (08:14)
[2019-12-29] MEDS: METFORMIN XR 500 MG TAB.SR.24H PO SCH (08:14)
[2019-12-29] MEDS: HALOPERIDOL 5 MG TABLET PO SCH ×2 (08:14→12:48)
--- NOTE | 2019-12-29 10:11 | NUR ---
Received patient awake, alert and oriented. Patient is calm, cooperative, and has approrpiate interaction with staff and peers but is guarded. Patient denies SI/HI, denies AH/VH. Patient is adherent with medication, no adverse reaction noted. patient educated about discharge today to SNF, able to verbalize understanding.
--- NOTE | 2019-12-29 15:28 | NUR ---
Patient discharged in stable condition. She was picked up by non-emergency ambulance and transported to [facility] ([phone]). Patient's belongings returned. Patient provided with education regarding discharge instructions and aftercare plan, able to verbalize understanding. Report given to NGUYỄN Regan at [facility]. Patient discharged without adverse event. VS upon discharge: BP 123/68, HR 78, temp 98.1, O2 98%.
== END 2019-12-29 15:35 | DRG 885 ==
LOC: ER 19:23 → GPS 22:17
PROVIDERS: ADMIT Psychiatry & Neurology Psychiatry; ATTEND Registered Nurse
DX: F31.64 Bipolar disorder, current episode mixed, severe, with psychotic features (principal); G92 Toxic encephalopathy; N39.0 Urinary tract infection, site not specified; E44.1 Mild protein-calorie malnutrition; Z68.1 Body mass index [BMI] 19.9 or less, adult; E03.9 Hypothyroidism, unspecified; Z86.711 Personal history of pulmonary embolism; J44.9 Chronic obstructive pulmonary disease, unspecified; Z79.84 Long term (current) use of oral hypoglycemic drugs; Z79.890 Hormone replacement therapy; E11.9 Type 2 diabetes mellitus without complications; D64.9 Anemia, unspecified; E88.09 Other disorders of plasma-protein metabolism, not elsewhere classified; F41.9 Anxiety disorder, unspecified; K64.9 Unspecified hemorrhoids; L40.9 Psoriasis, unspecified; R62.7 Adult failure to thrive; Z73.6 Limitation of activities due to disability; Z91.5 Personal history of self-harm; M85.80 Other specified disorders of bone density and structure, unspecified site; M62.81 Muscle weakness (generalized)
CPT/HCPCS: 36415; 70030-TC; 71045; 83735; 84100; 84443; 85025; 87086; 93005; J1815; J2060; J3486